=== PATIENT | male | born 2000 | race Caucasian/White ===

== ENCOUNTER 2021-11-24 17:01 | Emergency (ER) | payer BC, MEDICAID ==
[~2021-11-24] VITALS: Ht 172.7 cm; Wt 81.8 kg
[2021-11-24 18:00] VITALS: BP 108/53; PULSE 58; TEMP 98.1
== END 2021-11-24 18:05 | disposition home or self-care (01) ==
LOC: COL.ER 17:01
DX: K04.7 Periapical abscess without sinus (principal)

== ENCOUNTER 2022-02-15 09:25 | Emergency (ER) | payer SELFPAY ==
[~2022-02-15] VITALS: Ht 172.7 cm; Wt 81.8 kg
[2022-02-15 09:32] VITALS: BP 146/66; TEMP 97.8
[2022-02-15 12:15] LABS: BASO % 0.1 % (0.0-2.0); GRAN % 86.9 % (42.2-75.2); HEMATOCRIT 45.5 % (42.0-52.0); HEMOGLOBIN 16.4 g/dl (13.5-18.0); LYMPH # 1.1 K/mm3 (1.2-3.4); LYMPH % 7.5 % (20.0-51.0); MEAN CELL VOLUME 88 fl (80.0-100.0); MEAN CORPUSCULAR HEMOGLOBIN 32 pg (27-31); MEAN CORPUSCULAR HGB CONC 36 g/dl (33.0-37.0); MEAN PLATELET VOLUME 8.5 fl (7.4-10.4); MONO # 0.8 K/mm3 (0.1-0.6); MONO % 5.2 % (1.7-9.3); PLATELET COUNT 203 K/mm3 (130-400); RED BLOOD COUNT 5.18 M/mm3 (4.20-5.60); REDCELL DISTRIBUTION WIDTH-CV 12.1 % (11.5-14.5)
[2022-02-15 12:26] LABS: ALBUMIN 4.5 gm/dL (3.5-5.0); BILIRUBIN,TOTAL 0.7 mg/dL (0.2-1.2); CALCIUM 9.3 mg/dL (8.4-10.2); CREATININE, serum 0.86 mg/dL (0.72-1.25); POTASSIUM 3.9 mmol/L (3.5-4.5); TOTAL PROTEIN 7.5 gm/dL (6.2-8.1)
[2022-02-15 12:27] LABS: INR 1.2 (0.8-3.0); PROTHROMBIN TIME 13.4 SECONDS (9.7-12.8)
[2022-02-15 12:45] VITALS: PULSE 65
== END 2022-02-15 12:45 | disposition short-term general hospital (02) ==
LOC: COL.ER 09:25
PROVIDERS: Physician Assistant
DX: S32.401A Unspecified fracture of right acetabulum, initial encounter for closed fracture (principal); V48.5XXA Car driver injured in noncollision transport accident in traffic accident, initial encounter; X50.1XXA Overexertion from prolonged static or awkward postures, initial encounter; Y92.410 Unspecified street and highway as the place of occurrence of the external cause
CPT/HCPCS: J2060; J2405; J7030